=== PATIENT | male | born 1995 | race Caucasian/White ===

== ENCOUNTER 2025-02-19 01:55 | Emergency (ER) | payer SELFPAY ==
[~2025-02-19] VITALS: Ht 147.3 cm; Wt 70.0 kg
[2025-02-19 02:04] VITALS: TEMP 36.9; O2SAT 100
[2025-02-19 03:01] LABS: BASOPHILS % 0.6 % (0.0-2.0); EOSINOPHILS % 3.1 % (0.0-5.0); HEMATOCRIT. 41.8 % (42.0-52.0); HEMOGLOBIN. 14.3 g/dL (14.0-18.0); LYMPHOCYTES % 36.3 % (20.0-50.0); MEAN PLATELET VOLUME 8.0 fl (7.4-10.4); MONOCYTES % 8.0 % (2.0-8.0); NEUTROPHILS % 52.0 % (40.0-76.0); PLATELET 276 x1000/uL (130-400); RED BLOOD CELL COUNT 4.83 mill/uL (4.7-6.1); RED CELL DISTRIBUTION WIDTH 12.9 % (11.6-14.6)
[2025-02-19 03:11] LABS: CREATININE 0.7 mg/dL (0.6-1.3); UREA NITROGEN BLOOD 13 mg/dL (9-23)
[2025-02-19 03:15] LABS: T4 FREE 1.55 ng/dL (0.89-1.76)
[2025-02-19 04:07] VITALS: BP 123/85; PULSE 68; RESP 13; O2SAT 98
== END 2025-02-19 04:10 | disposition home or self-care (01) ==
LOC: ER 01:55
DX: R00.2 Palpitations (principal)
CPT/HCPCS: 36415; 71045; 80048; 84439; 84443; 85025; 87426; 93005; 99285